=== PATIENT | male | born 1935 | race Caucasian/White ===

== ENCOUNTER 2017-03-13 16:06 | Emergency (ER) | payer SELFPAY, OTHER, MEDICAID | END 2017-03-13 21:14 | disposition left against medical advice (07) | LOC: E/R 21:14 | DX: Z53.21 Procedure and treatment not carried out due to patient leaving prior to being seen by health care provider (principal) ==

== ENCOUNTER 2017-03-14 07:40 | Inpatient (IN) | payer OTHER, MEDICAID ==
[2017-03-14 09:00] LABS: ADD MAN DIFF? NO
[2017-03-14 09:02] LABS: BASOPHILS % 0.5 % (0.0-2.0); EOSINOPHILS # 0.1 10^3/ul (0.0-0.5); HEMATOCRIT 39.5 % (42.0-52.0); HEMOGLOBIN 13.3 g/dl (14.0-18.0); LYMPHOCYTES % 33.3 % (15.0-51.0); MEAN CORPUSCULAR HEMOGLOBIN 29.3 pg (29.0-33.0); MEAN CORPUSCULAR HGB CONC 33.7 g/dl (32.0-37.0); MONOCYTE # 0.4 10^3/ul (0.3-0.9); NEUTROPHIL # 3.3 10^3/ul (1.6-7.5); PLATELET COUNT 191 10^3/UL (140-415); RED BLOOD COUNT 4.54 10^6/ul (4.70-6.10); RED CELL DISTRIBUTION WIDTH 14.1 % (11.5-14.5)
[2017-03-14 09:02] LABS: WHITE BLOOD COUNT 5.9 10^3/ul (4.8-10.8)
[2017-03-14 09:19] LABS: ANION GAP 13 (8-16); BLOOD UREA NITROGEN 14 mg/dl (7-20); CALCIUM 9.1 mg/dl (8.4-10.2); CARBON DIOXIDE 30 mmol/L (21-31); CHLORIDE 105 mmol/L (97-110); CREATININE 0.86 mg/dl (0.61-1.24); GLUCOSE 176 mg/dl (70-220); POTASSIUM 3.9 mmol/L (3.5-5.1); SODIUM 144 mmol/L (135-144)
[2017-03-14 09:37] LABS: TROPONIN-I < 0.012 ng/ml (0.00-0.12)
[2017-03-14 09:39] LABS: INR 1.09; PROTIME 14.3 Sec (11.9-14.9); PT RATIO 1.1
[2017-03-14 13:39] LABS: ADD UMIC NO; UR ASCORBIC ACID NEGATIVE (NEGATIVE); UR BILIRUBIN (Dip) NEGATIVE (NEGATIVE); UR BLOOD (Dip) NEGATIVE (NEGATIVE); UR CLARITY CLEAR (CLEAR); UR COLOR YELLOW (YELLOW); UR GLUCOSE (Dip) NEGATIVE (NEGATIVE); UR KETONES (Dip) NEGATIVE (NEGATIVE); UR LEUKOCYTE ESTERASE (Dip) NEGATIVE Leu/ul (NEGATIVE); UR NITRITE (Dip) NEGATIVE (NEGATIVE); UR SPECIFIC GRAVITY (Dip) 1.017 (1.003-1.030); UR TOTAL PROTEIN (Dip) NEGATIVE (NEGATIVE); UR UROBILINOGEN (Dip) 1+ mg/dL (NEGATIVE)
[2017-03-14 14:03] LABS: AMPHETAMINE/METHAMPHETAMINE Negative (NEGATIVE); BARBITURATES Negative (NEGATIVE); BENZODIAZEPINES Negative (NEGATIVE)
[2017-03-14 14:04] LABS: CANNABINOIDS Negative (NEGATIVE); COCAINE Negative (NEGATIVE); OPIATES Negative (NEGATIVE)
[2017-03-14] MEDS: ASPIRIN 325 MG TAB PO (14:25)
[2017-03-14] MEDS ORDERED: GLUCOSE GEL 15 GRAM TUBE BUCCAL (17:00)
[2017-03-14] MEDS ORDERED: DEXTROSE 50% 50 ML SYRINGE IV ×2 (17:00)
[2017-03-14] MEDS ORDERED: GLUCOSE GEL 15 GRAM TUBE PO ×2 (17:00)
[2017-03-14] MEDS ORDERED: GLUCAGON 1 MG INJ IM (17:00)
[2017-03-14] MEDS: INSULIN ASPART [NOVOLOG] 3 ML PEN SC ×2 (18:00→20:21)
[2017-03-14] MEDS: RIVAROXABAN 15 MG TABLET PO (18:32)
[2017-03-14] MEDS: metFORMIN 500 MG TAB PO (18:32)
[2017-03-14] MEDS: MEMANTINE 10 MG TAB PO (20:16)
[2017-03-14] MEDS: ATORVASTATIN 40 MG TAB PO (20:16)
[2017-03-14] MEDS ORDERED: NON-FORMULARY/PATIENT OWN MED (Sitagliptin Phos/Metformin HCl (Janumet 50-500 mg Tablet) 1 PO (21:00)
[2017-03-14] MEDS ORDERED: LEVETIRACETAM 500 MG TAB PO (21:00)
[2017-03-14] MEDS: PHENYTOIN 1,000 MG in SOD CHLORIDE 0.9% 100 ML IV (21:36)
[2017-03-14] MEDS ORDERED: LORAZEPAM 2 MG INJ IV (22:30)
[2017-03-15] MEDS: LEVETIRACETAM IV 1,500 MG in DEXTROSE 5% 100 ML IVPB (01:40)
[2017-03-15] MEDS: ACCU-CHEK XX (02:00)
[2017-03-15] MEDS: INSULIN ASPART [NOVOLOG] 3 ML PEN SC ×4 (08:00→21:00)
[2017-03-15] MEDS: metFORMIN 500 MG TAB PO ×2 (08:48→18:55)
[2017-03-15] MEDS: RIVAROXABAN 15 MG TABLET PO ×2 (08:48→22:04)
[2017-03-15] MEDS: LINAGLIPTIN 5 MG TABLET PO (08:48)
[2017-03-15] MEDS: LEVETIRACETAM 1500 MG (PMX) 100 ML IVPB (09:51)
[2017-03-15] MEDS: DONEPEZIL 10 MG TAB PO (09:52)
[2017-03-15 10:09] LABS: ALANINE AMINOTRANSFERASE 30 IU/L (13-69); ALBUMIN 4.1 g/dl (3.3-4.9); ALBUMIN/GLOBULIN RATIO 1.24; ALKALINE PHOSPHATASE 67 IU/L (42-121); ANION GAP 17 (8-16); ASPARTATE AMINO TRANSFERASE 24 IU/L (15-46); BILIRUBIN,INDIRECT 0.4 mg/dl (0-1.1); BILIRUBIN,TOTAL 0.4 mg/dl (0.2-1.3); BLOOD UREA NITROGEN 12 mg/dl (7-20); CALCIUM 8.9 mg/dl (8.4-10.2); CARBON DIOXIDE 24 mmol/L (21-31); CHLORIDE 106 mmol/L (97-110); GLUCOSE 157 mg/dl (70-220); POTASSIUM 3.9 mmol/L (3.5-5.1); SODIUM 143 mmol/L (135-144); TOTAL PROTEIN 7.4 g/dl (6.1-8.1)
[2017-03-15 10:44] LABS: HDL CHOLESTEROL 40 mg/dl (31-75); LDL CHOLESTEROL,CALCULATED 27 mg/dl; TRIGLYCERIDES 69 mg/dl (0-149)
[2017-03-15 10:44] LABS: CHOLESTEROL 81 mg/dl (100-200)
[2017-03-15 10:48] LABS: PHENYTOIN (DILANTIN) 10.9 ug/ml (10.0-20.0)
[2017-03-15 11:16] LABS: THYROID STIMULATING HORMONE 0.484 MIU/L (0.465-4.680)
[2017-03-15] MEDS ORDERED: LEVETIRACETAM IV 1,000 MG in DEXTROSE 5% 100 ML IVPB (21:00)
[2017-03-15] MEDS: MEMANTINE 10 MG TAB PO (22:04)
[2017-03-15] MEDS: PHENYTOIN 100 MG CAP PO (22:04)
[2017-03-15] MEDS: ATORVASTATIN 40 MG TAB PO (22:04)
[2017-03-15] MEDS: LEVETIRACETAM 1000 MG (PMX) 100 ML IVPB (22:05)
[2017-03-16] MEDS: PHENYTOIN 500 MG in SOD CHLORIDE 0.9% 100 ML IV (00:19)
[2017-03-16] MEDS: ACCU-CHEK XX (02:00)
[2017-03-16] MEDS: INSULIN ASPART [NOVOLOG] 3 ML PEN SC ×4 (07:37→21:00)
[2017-03-16] MEDS: DONEPEZIL 10 MG TAB PO (08:23)
[2017-03-16] MEDS: LINAGLIPTIN 5 MG TABLET PO (08:23)
[2017-03-16] MEDS: RIVAROXABAN 15 MG TABLET PO ×2 (08:23→17:22)
[2017-03-16] MEDS: LEVETIRACETAM 1000 MG (PMX) 100 ML IVPB ×2 (08:23→21:28)
[2017-03-16] MEDS: metFORMIN 500 MG TAB PO ×2 (08:23→17:22)
[2017-03-16 12:10] LABS: PHENYTOIN (DILANTIN) 10.7 ug/ml (10.0-20.0)
[2017-03-16] MEDS: PHENYTOIN 100 MG CAP PO (21:14)
[2017-03-16] MEDS: MEMANTINE 10 MG TAB PO (21:14)
[2017-03-16] MEDS: ATORVASTATIN 40 MG TAB PO (21:15)
[2017-03-17] MEDS: ACCU-CHEK XX (02:00)
[2017-03-17] MEDS: PHENYTOIN 500 MG in SOD CHLORIDE 0.9% 100 ML IV (02:09)
[2017-03-17] MEDS: INSULIN ASPART [NOVOLOG] 3 ML PEN SC ×3 (08:00→17:10)
[2017-03-17] MEDS: metFORMIN 500 MG TAB PO ×2 (08:39→17:40)
[2017-03-17] MEDS: PHENYTOIN 100 MG CAP PO (08:39)
[2017-03-17] MEDS: LINAGLIPTIN 5 MG TABLET PO (08:40)
[2017-03-17] MEDS: DONEPEZIL 10 MG TAB PO (08:44)
[2017-03-17] MEDS: RIVAROXABAN 15 MG TABLET PO ×2 (08:44→18:42)
[2017-03-17] MEDS: LEVETIRACETAM 1000 MG (PMX) 100 ML IVPB (10:16)
[2017-03-17] MEDS: MAGNESIUM HYDROXIDE 30ML CUP PO (14:49)
[2017-03-17] MEDS ORDERED: DOCUSATE SODIUM 100 MG CAP PO (21:00)
== END 2017-03-17 19:40 | DRG 64 ==
LOC: MS4 17:28 → E/R 07:40
PROC: 4A00X4Z Measurement of Central Nervous Electrical Activity, External Approach (ICD-10-PCS; principal; 2017-03-15)
DX: I63.9 Cerebral infarction, unspecified (principal); G93.49 Other encephalopathy; G81.91 Hemiplegia, unspecified affecting right dominant side; F03.90 Unspecified dementia, unspecified severity, without behavioral disturbance, psychotic disturbance, mood disturbance, and anxiety; I69.351 Hemiplegia and hemiparesis following cerebral infarction affecting right dominant side; E11.9 Type 2 diabetes mellitus without complications; R47.81 Slurred speech; G40.909 Epilepsy, unspecified, not intractable, without status epilepticus; Z85.038 Personal history of other malignant neoplasm of large intestine; E78.5 Hyperlipidemia, unspecified
CPT/HCPCS: 36415; 70450; 70551; 71045; 80048; 80053; 80061; 80185; 80307; 81003; 82962; 83036; 84443; 84484; 85025; 85610; 85730; 92526; 92610; 93005; 93306; 93880; 95819; 96374; 97162; 99285-25